=== PATIENT | female | born 1990 | race Caucasian/White ===

== ENCOUNTER 2017-03-28 11:07 | Emergency (ER) | payer SELFPAY ==
[2017-03-28 11:14] VITALS: BP 142/104
[2017-03-28] MEDS ORDERED: PREDNISONE 20 MG TABLET PO ONE (11:43)
[2017-03-28] MEDS ORDERED: FAMOTIDINE 20 MG TABLET PO ONE (11:43)
[2017-03-28] MEDS ORDERED: LORATADINE 10 MG TABLET PO ONE (11:43)
--- NOTE | 2017-03-28 11:49 | ER Document Report ---
ED Skin Rash/Insect Bite/Abscs - General Chief Complaint: Puncture Wound to Foot Stated Complaint: POSSIBLE ALLERIGIC REACTION Time Seen by Provider: 03/28/17 11:33 Mode of Arrival: Ambulatory Information source: Patient Notes: 27-year-old female presented to ED for a red swollen foot with multiple ant bites to the foot this morning. There was no puncture wound no signs of any injury no signs of cellulitis. TRAVEL OUTSIDE OF THE [place] IN LAST 30 DAYS: No - HPI Patient complains to provider of: Insect bite - Multiple ant bites to the left foot this morning and that has caused her left foot to be red and swollen with no signs of infection no open wounds. Onset/Duration: Gradual Quality of pain: Pressure Severity: Mild Pain Level: 2 Skin Character: Erythema, Swelling Quality of rash: Itchy Identify cause: Yes Exacerbated by: Denies Relieved by: Denies Similar symptoms previously: No Recently seen / treated by doctor: No - Related Data Allergies/Adverse Reactions: diphenhydramine [From Benadryl] Allergy (Verified 03/28/17 11:12) Penicillins Allergy (Verified 03/28/17 11:12) Past Medical History - General Information source: Patient - Social History Smoking Status: Former Smoker Cigarette use (# per day): No Chew tobacco use (# tins/day): No Smoking Education Provided: No Frequency of alcohol use: None Drug Abuse: None Lives with: Family Family History: Reviewed & Not Pertinent Patient has suicidal ideation: No Patient has homicidal ideation: No - Past Medical History Cardiac Medical History: Reports: None Pulmonary Medical History: Reports: None EENT Medical History: Reports: None Neurological Medical History: Reports: None Endocrine Medical History: Reports: None Renal/ Medical History: Reports: None Malignancy Medical History: Reports: None GI Medical History: Reports: None Musculoskeltal Medical History: Reports None Skin Medical History: Reports None Psychiatric Medical History: Reports: None Traumatic Medical History: Reports: None Infectious Medical History: Reports: None Surgical Hx: Negative Past Surgical History: Reports: None Review of Systems - Review of Systems Constitutional: No symptoms reported EENT: No symptoms reported Cardiovascular: No symptoms reported Respiratory: No symptoms reported Gastrointestinal: No symptoms reported Genitourinary: No symptoms reported Female Genitourinary: No symptoms reported Musculoskeletal: No symptoms reported Skin: Other - Erythema and swelling to the left foot after being bit by multiple aunts this morning Hematologic/Lymphatic: No symptoms reported Neurological/Psychological: No symptoms reported -: Yes All other systems reviewed and negative Physical Exam - Vital signs Vitals: Temp Pulse Resp BP Pulse Ox 98.2 F 105 H 18 142/104 H 99 03/28/17 11:13 03/28/17 11:13 03/28/17 11:13 03/28/17 11:13 03/28/17 11:13 Interpretation: Normal - General General appearance: Appears well, Alert - HEENT Head: Normocephalic, Atraumatic Eyes: Normal Pupils: PERRL - Respiratory Respiratory status: No respiratory distress Chest status: Nontender Breath sounds: Normal Chest palpation: Normal - Cardiovascular Rhythm: Regular Heart sounds: Normal auscultation Murmur: No - Abdominal Inspection: Normal Distension: No distension Bowel sounds: Normal Tenderness: Nontender Organomegaly: No organomegaly - Back Back: Normal, Nontender - Extremities General upper extremity: Normal inspection, Nontender, Normal color, Normal ROM , Normal temperature General lower extremity: Normal inspection, Nontender, Normal color, Normal ROM , Normal temperature, Normal weight bearing. No: Macarena's sign - Neurological Neuro grossly intact: Yes Cognition: Normal Orientation: AAOx4 Paul Coma Scale Eye Opening: Spontaneous Paul Coma Scale Verbal: Oriented Paul Coma Scale Motor: Obeys Commands Paul Coma Scale Total: 15 Speech: Normal Motor strength normal: LUE, RUE, LLE, RLE Sensory: Normal - Psychological Associated symptoms: Normal affect, Normal mood - Skin Skin Temperature: Warm Skin Moisture: Dry Skin Color: Normal Character of irregularity: Erythematous, Other - Hospital ant bites to left foot Irregularity with: Swelling, Tenderness Course - Re-evaluation Re-evalutation: 03/28/17 19:24 Patient was treated with Zyrtec Pepcid and there worries for her red swollen foot after multiple insect bites to the foot - Vital Signs Vital signs: Temp Pulse Resp BP Pulse Ox 98.2 F 105 H 18 142/104 H 99 03/28/17 11:13 03/28/17 11:13 03/28/17 11:13 03/28/17 11:13 03/28/17 11:13 Discharge - Discharge Clinical Impression: ant bites to right foot Condition: Stable Disposition: HOME, SELF-CARE Instructions: Family Physicians / Practices Additional Instructions: ACUTE ALLERGIC REACTION: Your symptoms are due to an allergic reaction. Allergy can cause hives, swelling of the hands, feet, and face, hoarseness, and difficulty swallowing or breathing. It may be due to exposure to medication, animal dander, foods, infection, or insect bites. Medication is a common cause, even when prior use of this same medication caused no problems. Acute treatment may include adrenalin and antihistamines. Usually, the specific allergic agent can't be identified unless repeated episodes occur. Home treatment includes the following: (1) Stop any suspicious medications. This will be discussed with you. (2) Oral antihistamines for the next four to five days. Example, diphenhydramine (Benadryl) every four hours. (3) You may also use cimetidine (Tagamet), ranitidine (Zantac), or famotidine ( Pepcid) every four hours if diphenhydramine is not controlling itching and hives. (4) Avoid aspirin until the hives completely disappear. (5) Avoid hot baths or showers until the hives are completely gone. Call the doctor if faintness, difficulty swallowing, tightness in the chest , or wheezing occurs. STEROID MEDICATION: You have been given a medicine of the cortisone/steroid class. This medication is used to control inflammation or allergy. It is usually only given for a short period of time, until the acute process subsides. There are usually no side effects from short-term use of cortisone-like medications. Some persons feel an increased sense of well-being and are not sleepy at bedtime. Long-term use of cortisone medications is best avoided, unless required for a severe condition. If your condition does not remit, or relapses after the course of corticosteroid medication, you should consult your physician. ACID-SUPPRESSING MEDICATION: You have a prescription for medicine which reduces the stomach's secretion of acid. Examples include Zantac, Tagament, and Pepcid. These drugs are often used to allow healing of ulcers or esophagitis. They may be needed to prevent recurrence of ulcers in some patients, or to prevent damage from acid reflux in the esophagus. Take all medication as prescribed, even after the pain is gone. Regular antacids may be added as needed if you have symptoms while taking this medicine. These medications sometimes are prescribed for allergic reactions because they have anti-histaminic effects and relieve the rash and itching of the reaction. There are usually no side effects from this medication. But, in rare cases and particularly in the elderly, serious problems can occur. Contact your doctor if there is fever, rash, hallucinations, confusion, or unusual bruising. Contact your doctor at once if you develop lightheadedness, black or bloody stool, or bloody vomitus. ANTIHISTAMINES: An antihistamine has been given and/or prescribed to control your symptoms. Antihistamines are used for many reasons, including itching, watering eyes, runny nose, allergic swelling, hives, and insect stings. Antihistamines may cause drowsiness, especially with the first dose. Do not operate machinery or drive while under the effects of the medication. Other common side effects include dry mouth and eyes. In older persons, antihistamines can occasionally cause urinary retention, constipation, and trouble focusing the eyes. Do not combine the medication with alcohol, or with any other medication without talking to your doctor. FOLLOW-UP CARE: If you have been referred to a physician for follow-up care, call the physician s office for an appointment as you were instructed or within the next two days. If you experience worsening or a significant change in your symptoms, notify the physician immediately or return to the Emergency Department at any time for re-evaluation. Prescriptions: Famotidine [Pepcid 20 mg Tablet] 20 mg PO BID #12 tablet Prednisone [Deltasone 10 mg Tablet] 10 mg PO ASDIR PRN #21 tablet PRN Reason: Forms: Elevated Blood Pressure, Parent Work Note, Return to Work
== END 2017-03-28 12:34 | disposition home or self-care (01) ==
LOC: ER 11:07
DX: T63.421A Toxic effect of venom of ants, accidental (unintentional), initial encounter (principal); M79.89 Other specified soft tissue disorders; Z88.8 Allergy status to other drugs, medicaments and biological substances; Z88.0 Allergy status to penicillin; Z87.891 Personal history of nicotine dependence
CPT/HCPCS: 99281; J7512

== ENCOUNTER 2018-03-15 12:33 | Emergency (ER) | payer SELFPAY ==
[2018-03-15 12:44] VITALS: BP 138/87
--- NOTE | 2018-03-15 13:12 | ER Document Report ---
ED Medical Screen (RME) - General Chief Complaint: Numbness of Arm Stated Complaint: ARM PAIN Time Seen by Provider: 03/15/18 13:07 Mode of Arrival: Ambulatory Information source: Patient, Relative TRAVEL OUTSIDE OF THE [place] IN LAST 30 DAYS: No - HPI Onset: Other - 28-year-old female with several month duration of right upper extremity intermittent tingling and numbness in the pinky and ring finger. She went to sleep after having moved a bunch of furniture with friends recently last night woke up today had some tingling in her right upper extremity began to become nervous to talk to her mother who then said they should come the emergency room, by the time she arrived the symptoms have resolved, she has had similar episodes like this in the past. She been seen previously by a neurologist who noted that these were likely carpal tunnel or tendinitis. Denies fevers or chills recent traumas or other injury - Related Data Allergies/Adverse Reactions: diphenhydramine [From Benadryl] Allergy (Verified 03/15/18 12:42) Penicillins Allergy (Verified 03/15/18 12:42) Past Medical History - General Information source: Patient - Social History Cigarette use (# per day): No - Medical History Medical History: Other - Meningioma Renal/ Medical History: Denies: Hx Peritoneal Dialysis Review of Systems - Review of Systems -: Yes All other systems reviewed and negative Physical Exam - Vital signs Vitals: Temp Pulse Resp BP Pulse Ox 98.4 F 94 14 138/87 H 99 03/15/18 12:43 03/15/18 12:43 03/15/18 12:43 03/15/18 12:43 03/15/18 12:43 - General General appearance: Appears well In distress: None - HEENT Head: Normocephalic Eyes: Normal Conjunctiva: Normal Cornea: Normal Extraocular movements intact: Yes Eyelashes: Normal Pupils: PERRL - Respiratory Respiratory status: No respiratory distress Chest status: Nontender Breath sounds: Normal Chest palpation: Normal - Cardiovascular Rhythm: Regular Heart sounds: Normal auscultation Murmur: No - Abdominal Inspection: Normal Distension: No distension Tenderness: Nontender - Back Back: Normal - Extremities General upper extremity: Other - The upper extremities are symmetric, normal range of motion of the shoulder, elbows, wrist bilaterally 5 out of 5 strength in the bilateral upper extremities There is tenderness to palpation over the base of the fifth and fourth Witt carpals of the right upper extremity There is reproducible tenderness over the extensors in the forearm and the right upper extremity Reproducible symptoms with compression of the ulnar nerve in the right upper extremity Negative Tinel sign General lower extremity: Normal inspection, Nontender, Normal ROM, Normal strength - Neurological Neuro grossly intact: Yes Cognition: Normal Orientation: AAOx4 Paul Coma Scale Eye Opening: Spontaneous Paul Coma Scale Verbal: Oriented [place] Coma Scale Motor: Obeys Commands Paul Coma Scale Total: 15 Speech: Normal Cranial nerves: Normal Motor strength normal: LUE, RUE, LLE, RLE - Psychological Associated symptoms: Normal affect Course - Re-evaluation Re-evalutation: 03/15/18 13:10 28-year-old woman presents for evaluation of numbness and tingling in the right upper extremity in the setting of have stretched her arm above her head. She has had this is a long-standing symptom for the last several months, she had been seen previously by a neurologist who told her it was tendinitis or carpal tunnel syndrome. On examination no numbness or weakness in the right upper extremity she is well- appearing neurologically intact. She does have reproducible symptoms with compression of her ulnar nerve. 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 We will plan for this young lady to undergo discharge with return precautions and a orthopedics referral for possible decompression do not believe this represents CVA or some other more sinister central process. - Vital Signs Vital signs: Temp Pulse Resp BP Pulse Ox 98.4 F 94 14 138/87 H 99 03/15/18 12:43 03/15/18 12:43 03/15/18 12:43 03/15/18 12:43 03/15/18 12:43 Doctor's Discharge - Discharge Clinical Impression: Arm numbness Ulnar nerve compression Qualifiers: Laterality: right Qualified Code(s): G56.21 - Lesion of ulnar nerve, right upper limb Hand swelling Qualifiers: Laterality: right Qualified Code(s): M79.89 - Other specified soft tissue disorders Condition: Good Disposition: HOME, SELF-CARE Additional Instructions: He was seen today in the emergency department for your ulnar nerve syndrome, he had evaluation including a physical exam, it is likely that your symptoms are related to compression of your ulnar nerve. You should perform stretches daily, pull your arm across your chest with your other arm for 10 seconds at a time 2 or 3 times a day. Stretch the back of your hand with your other hand for 10 seconds at a time 2-3 times a day Stretch the front of your hand with your other hand for 10 seconds at a time 2- 3 times a day as I had shown you. You have been given a referral to an orthopedist, he should call for an appointment in the coming week. Return for any worsening numbness or weakness or if you have inability to speak. Forms: Elevated Blood Pressure Referrals: NITHNI FOREMAN MD [ACTIVE STAFF] - Follow up in 1 week
== END 2018-03-15 13:15 | disposition home or self-care (01) ==
LOC: ER 12:33
DX: G56.21 Lesion of ulnar nerve, right upper limb (principal); M79.89 Other specified soft tissue disorders; R20.0 Anesthesia of skin; R20.2 Paresthesia of skin; Z88.8 Allergy status to other drugs, medicaments and biological substances; Z88.0 Allergy status to penicillin
CPT/HCPCS: 99283

== ENCOUNTER 2018-08-20 16:18 | Emergency (ER) | payer OTHER ==
[2018-08-20 16:24] VITALS: BP 149/92
--- NOTE | 2018-08-20 17:54 | ER Document Report ---
HPI - HPI Time Seen by Provider: 08/20/18 17:06 Pain Level: 2 Notes: Patient is a 28-year-old female who presents with possible insect bite to her left foot. She reports associated chills and achiness at the area. She states that there is swelling and redness to the area. She denies putting anything on the area. She did not see what type of insect bit her. - CONSTITUTIONAL Constitutional: REPORTS: Chills - day 2 - REPRODUCTIVE Reproductive: DENIES: : - MUSCULOSKELETAL Musculoskeletal: REPORTS: Extremity pain - lt foot Past Medical History - General Information source: Patient - Social History Smoking Status: Current Every Day Smoker Frequency of alcohol use: None Drug Abuse: None Family History: Reviewed & Not Pertinent Patient has suicidal ideation: No Patient has homicidal ideation: No - Past Medical History Cardiac Medical History: Reports: Hx Hypertension - untreated Renal/ Medical History: Denies: Hx Peritoneal Dialysis Vertical Provider Document - CONSTITUTIONAL Notes: PHYSICAL EXAMINATION: GENERAL: Well-appearing, well-nourished and in no acute distress. HEAD: Atraumatic, normocephalic. EYES: Pupils equal round extraocular movements intact, conjunctiva are normal. ENT: Nares patent NECK: Normal range of motion LUNGS: No respiratory distress Musculoskeletal: Normal range of motion NEUROLOGICAL: Normal speech, normal gait. PSYCH: Normal mood, normal affect. SKIN: Warm, Dry, normal turgor, no rashes or lesions noted. Mild erythema noted to dorsal surface of left foot, no induration or fluctuance noted. Cap refill less than 3 seconds, normal motor and sensation distal to area of concern. - INFECTION CONTROL TRAVEL OUTSIDE OF THE [place] IN LAST 30 DAYS: No Course - Re-evaluation Re-evalutation: Patient has possible insect bite to the dorsal surface of her left foot. There is some surrounding erythema but no induration or fluctuance. I will start patient on antibiotics for this as she is concerned that it is getting infected. Patient is allergic to Benadryl so she is unable to take that. Instructed patient that she may try taking some [id number] Pepcid as well. - Vital Signs Vital signs: Temp Pulse Resp BP Pulse Ox 98.6 F 78 18 149/92 H 100 08/20/18 16:23 08/20/18 16:23 08/20/18 16:23 08/20/18 16:23 08/20/18 16:23 Discharge - Discharge Clinical Impression: Insect bite Qualifiers: Encounter type: initial encounter Site of insect bite: foot Laterality: left Qualified Code(s): S90.862A - Insect bite (nonvenomous), left foot, initial encounter Cellulitis Qualifiers: Site of cellulitis: unspecified site Qualified Code(s): L03.90 - Cellulitis, unspecified Condition: Stable Disposition: HOME, SELF-CARE Additional Instructions: Insect Bites You have been bitten by an insect. These bites can cause two types of swelling: an initial swelling due to insect saliva or injected poison, and a late reaction due to your body's allergic reaction. This initial local reaction may be uncomfortable but is not dangerous. Often there's an itchy "hive" at the bite location. This is treated with antihistamines, cold compresses, and resting the affected body part. The later reaction often develops about the second day. The entire area becomes very swollen, red, itchy, and tender. This is an allergic reaction. Your body is attacking the leftover insect saliva or venom. This type of allergy is unpleasant, but not dangerous. We treat this swelling with cortisone-type medicine. Sometimes we use antibiotics if we're worried about infection. Antihistamines help with the itch. If you develop a fever, chills, a red streak, or swollen glands in the area of the bite, infection may be starting. Return at once. Since you are allergic to Benadryl you may try taking Pepcid 40 mg twice daily. Please take antibiotics as prescribed. Please return to the emergency department with any worsening pain, redness, red streaking from the area or any other symptom that is concerning to you. I would like you to follow-up with the [facility] regarding your elevated blood pressure today. Call them to schedule an appointment. Prescriptions: Doxycycline Hyclate 100 mg PO BID #14 capsule Forms: Return to Work Referrals: [facility] [Provider Group] - Follow up as needed
== END 2018-08-20 18:15 | disposition home or self-care (01) ==
LOC: ER 16:18
DX: L03.90 Cellulitis, unspecified (principal); S90.862A Insect bite (nonvenomous), left foot, initial encounter; W57.XXXA Bitten or stung by nonvenomous insect and other nonvenomous arthropods, initial encounter; I10 Essential (primary) hypertension; J45.909 Unspecified asthma, uncomplicated
CPT/HCPCS: 99281

== ENCOUNTER 2018-09-27 18:39 | Emergency (ER) | payer SELFPAY ==
[2018-09-27 20:08] VITALS: BP 144/102
--- NOTE | 2018-09-27 20:12 | ER Document Report ---
ED Headache - General Chief Complaint: Headache Stated Complaint: HEADACHE,VISION ISSUES Time Seen by Provider: 09/27/18 19:51 Mode of Arrival: Ambulatory Information source: Patient TRAVEL OUTSIDE OF THE [place] IN LAST 30 DAYS: No - HPI Patient complains to provider of: "Migraine", Other - PALPITATIONS Notes: Patient is here with complaints of headache and palpitations. The patient has a long history of optical migraines. She states that she sees what looks like a kaleidoscope in her eye and then developed a headache. States that she typically gets about 2 these a month but over the last few months is been happening about 3 times a month. Today she had 3 episodes where she had this type of headache. It feels like her typical headaches, it was just more common. She states that she currently has no headache at this time. She denies any head injury or fall. No blood thinners. No neck stiffness. She does have a history of meningioma which she tells me is only been able to be visualized with an MRI with contrast. She states that it had not grown the last time she had her MRI done which was a few years ago. She has had this for over 11 years that she is aware of. She also has a history of anxiety. She has a history of panic attacks. She states that when she pulled into the hospital to have her headache evaluated she started to feel anxious and had some palpitations. She started to hyperventilate and had some numbness and tingling to both of her hands which resolved. She denies any chest pain or shortness of breath with this. She states that this feels like previous panic attacks that she has had in the past. Right now she states that she feels perfectly fine, she mainly came because her made her be evaluated. She denies any nausea, vomiting, diarrhea. She denies any unilateral numbness, tingling, weakness. No chest pain or shortness of breath. No syncope. No neck stiffness. No rash. No other complaints at this time. - Related Data Allergies/Adverse Reactions: diphenhydramine [From Benadryl] Allergy (Verified 08/20/18 16:20) Penicillins Allergy (Verified 08/20/18 16:20) Past Medical History - Social History Smoking Status: Unknown if Ever Smoked Family History: Reviewed & Not Pertinent Patient has suicidal ideation: No Patient has homicidal ideation: No - Past Medical History Cardiac Medical History: Reports: Hx Hypertension - untreated Renal/ Medical History: Denies: Hx Peritoneal Dialysis Review of Systems - Review of Systems -: Yes All other systems reviewed and negative Physical Exam - Vital signs Vitals: Temp Pulse Resp BP Pulse Ox 98.1 F 84 18 155/107 H 97 09/27/18 19:03 09/27/18 19:03 09/27/18 19:03 09/27/18 19:03 09/27/18 19:03 - Notes Notes: GENERAL: alert, cooperative, nontoxic, no distress. HEAD: normocephalic, atraumatic EYES: conjunctiva pink without discharge, no external redness or swelling. Pupils are equal, round, reactive to light. EARS: no external swelling, no external redness NOSE: atraumatic, no external swelling MOUTH/THROAT: mucous membranes moist and pink, posterior pharynx without erythema, swelling, exudate. No trismus or drooling. NECK: soft, supple, full range of motion, no meningismus. CHEST: no distress, lungs clear and equal throughout. No wheezing, rales, rh onchi. CARDIAC: regular rate and rhythm, no murmur, normal capillary refill, normal pulses. No peripheral edema noted. BACK: full range of motion, no CVA tenderness. EXTREMITIES: full range of motion of all extremities. No redness, no swelling. NEURO: alert and oriented x 3, cranial nerves II through XII are grossly intact. Upper and lower extremities are equal throughout. Normal sensation. No focal deficits, full range of motion of all extremities. normal finger to nose. PYSCH: appropriate mood, affect. Patient is cooperative. SKIN: pink, warm, dry, no rash. Course - Re-evaluation Re-evalutation: 09/27/18 20:15 Patient is nontoxic-appearing with stable vitals. Patient here with complaints of headache as well as some palpitations. She has a long history of optical migraines and gets these frequently. States they have been occurring a little more frequently than normal today she had 3 episodes of this. She took some BC powders and has no headache now. She has a nonfocal neuro exam, she has a history of a meningioma which is only been able to be seen on MRI with contrast. She denies any injuries. No fevers, no neck stiffness, no sign of meningitis. This point she is completely benign exam with no headache. I do not believe that she requires a head CT at this time as this would not be sensitive enough to evaluate her meningioma and she has no signs of stroke or bleed. She also had what sounds like a panic attack as she was pulling into the hospital where she started to have some mild palpitations, hyperventilated and has some numbness tingling to her bilateral hands. This has since resolved. She states she has a history of this and is felt like previous panic attack she has had in the past. EKG is normal. I did offer to order labs and further evaluation regarding her palpitations, but she declined. I do believe this is reasonable as the patient has a history of panic attacks and it sounds like she was having a panic attack with some hyperventilation. This point I believe the patient does not require any significant work-up. I think she can be discharged home with instructions to follow-up with her primary care doctor as well as neurology regarding her increase in her headaches. She should follow-up sooner if she develops any worsening pain, high fever, persistent vomiting, unilateral numbness, tingling, weakness, or has any further concerns. She was instructed to also keep a log of her blood pressure and have this evaluated by her primary care doctor to determine if antihypertensive medications are needed. The patient's emergency department workup and current diagnosis were explained to the patient and or family. Follow-up instructions were provided. Medicat ions if prescribed were discussed. Instructions for when to return to the emergency department including specific worrisome symptoms were discussed with the patient and/or family. - Vital Signs Vital signs: Temp Pulse Resp BP Pulse Ox 98.1 F 84 18 155/107 H 97 09/27/18 19:03 09/27/18 19:03 09/27/18 19:03 09/27/18 19:03 09/27/18 19:03 - EKG Interpretation by Me EKG shows normal: Sinus rhythm, [place], Intervals, QRS Complexes, ST-T Waves When compared to previous EKG there are: Other - Rate 87, no STEMI. Discharge - Discharge Clinical Impression: Anxiety Migraine Qualifiers: Migraine type: unspecified Status migrainosus presence: without status migrainosus Intractability: not intractable Qualified Code(s): G43.909 - Migraine, unspecified, not intractable, without status migrainosus Condition: Stable Disposition: HOME, SELF-CARE Instructions: Headache ([facility]), Anxiety ([facility]) Additional Instructions: Follow-up with neurology at the next available appointment. Follow-up sooner for worsening pain, numbness, tingling, weakness, border loss of vision, chest pain or shortness of breath, syncope, persistent vomiting, or for any further concerns. Forms: Elevated Blood Pressure, Smoking Cessation Education Referrals: [facility] [Provider Group] - Follow up as needed GRETEL OSBORNE MD [EMERITUS] - Follow up as needed
--- NOTE | 2018-09-28 07:54 | EKG REPORT ---
SEVERITY:- BORDERLINE ECG - SINUS RHYTHM : Confirmed by: River Sosa MD 28-Sep-2018 07:54:36
== END 2018-09-27 20:15 | disposition home or self-care (01) ==
LOC: ER 18:39
DX: G43.909 Migraine, unspecified, not intractable, without status migrainosus (principal); F41.9 Anxiety disorder, unspecified; R00.2 Palpitations; H53.9 Unspecified visual disturbance; I10 Essential (primary) hypertension
CPT/HCPCS: 93005; 93010; 99283

== ENCOUNTER 2018-11-08 16:30 | Emergency (ER) | payer SELFPAY ==
[2018-11-08 16:44] VITALS: BP 150/97
--- NOTE | 2018-11-08 18:57 | ER Document Report ---
HPI - HPI Time Seen by Provider: 11/08/18 18:16 Pain Level: 4 Notes: Patient is an otherwise healthy 28-year-old female presented to emergency department with itching and redness to the top of her left foot. Patient states this is been present for approximately 2 days. She is unsure but thinks she may have been bitten by something. Denies any other symptoms. - CONSTITUTIONAL Constitutional: DENIES: Fever, Chills - EENT EENT: DENIES: Sore Throat, Ear Pain, Eye problems - NEURO Neurology: DENIES: Headache, Weakness, Vision blurred, Dizzinesss / Vertigo - CARDIOVASCULAR Cardiovascular: DENIES: Chest pain - RESPIRATORY Respiratory: DENIES: Trouble Breathing, Coughing - GASTROINTESTINAL Gastrointestinal: DENIES: Abdominal Pain - URINARY Urinary: DENIES: Dysuria, Urgency, Frequency - REPRODUCTIVE Reproductive: DENIES: : - MUSCULOSKELETAL Musculoskeletal: REPORTS: Extremity pain Past Medical History - General Information source: Patient - Social History Smoking Status: Never Smoker Chew tobacco use (# tins/day): No Frequency of alcohol use: None Drug Abuse: None Family History: Reviewed & Not Pertinent Patient has suicidal ideation: No Patient has homicidal ideation: No - Past Medical History Cardiac Medical History: Reports: Hx Hypertension - untreated Renal/ Medical History: Denies: Hx Peritoneal Dialysis Vertical Provider Document - CONSTITUTIONAL Notes: PHYSICAL EXAMINATION: GENERAL: Well-appearing, well-nourished and in no acute distress. HEAD: Atraumatic, normocephalic. EYES: Pupils equal round extraocular movements intact, conjunctiva are normal. ENT: Nares patent NECK: Normal range of motion LUNGS: No respiratory distress Musculoskeletal: Normal range of motion NEUROLOGICAL: Normal speech, normal gait. PSYCH: Normal mood, normal affect. SKIN: Erythema noted to dorsal surface of left foot. No induration or fluctuance noted. - INFECTION CONTROL TRAVEL OUTSIDE OF THE [place] IN LAST 30 DAYS: No Course - Re-evaluation Re-evalutation: Patient's exam is consistent with cellulitis and possibly an allergic reaction component to the insect bite. She states that she is allergic to Benadryl so we will start her on some steroids to help with the inflammation. She will also be started on p.o. antibiotics. The area was marked with a surgical marker and patient was instructed to return if it extends outside the surgical marker by 2 cm or more or if she develops a fever or red streaks from the area. - Vital Signs Vital signs: Temp Pulse Resp BP Pulse Ox 98.9 F 92 18 150/97 H 96 11/08/18 16:37 11/08/18 16:37 11/08/18 16:37 11/08/18 16:37 11/08/18 16:37 Discharge - Discharge Clinical Impression: Cellulitis Qualifiers: Site of cellulitis: extremity Site of cellulitis of extremity: lower extremity Laterality: left Qualified Code(s): L03.116 - Cellulitis of left lower limb Condition: Stable Disposition: HOME, SELF-CARE Additional Instructions: The rash is likely due to infection of your skin. You need to take the antibiotics as prescribed. Do not stop even if the rash goes away until you have completed all the antibiotics. The area of redness was traced out here in the emergency department with a marking pen. You need to return to emergency department if the redness spreads outside of this area by more than 2 cm in any direction. You should also return if you develop fevers with temperature greater than 101, persistent vomiting, worsening pain, or have any other symptoms that are concerning to you. Prescriptions: RX: Clindamycin HCl 300 mg PO TID #30 capsule RX: Prednisone [Deltasone 20 mg Tablet] 3 tab PO DAILY 5 Days #15 tablet
== END 2018-11-08 19:06 | disposition home or self-care (01) ==
LOC: ER 16:30
DX: L03.116 Cellulitis of left lower limb (principal)
CPT/HCPCS: 99281